=== PATIENT | female | born 1995 | race Caucasian/White ===

== ENCOUNTER 2019-12-23 19:25 | Emergency (ER) | payer MEDICAID ==
[~2019-12-23] VITALS: Ht 170.2 cm; Wt 49.9 kg
[2019-12-23 20:00] VITALS: BP 113/83
--- NOTE | 2019-12-23 20:00 | NUR ---
ED Nurse Note: pt ambulated into ed from home OC sz at home, duration unknown, precipitated by ETOH consumption - approx 2 12pks of [place], s/p witnessed by mother. Pt stated she is not sure what happened but is aware that she bite her tongue on the right side (no bleeding or bruising noted) and s/p hit head on floor. Pt reports headache and generalized body pain 8/10. UA obtained and sent to lab. Pt aao x 4, ambulatory. Awaiting ERMD at bedside Addendum: 12/23/19 at 2030 by [email or web address] ED Nurse Note: pt ambulated into ed from home OC sz at home, duration unknown, precipitated by ETOH consumption - approx 2 12pks of [place], s/p witnessed by mother. Pt stated she is not sure what happened but is aware that she bite her tongue on the right side (no bleeding or bruising noted) and s/p hit head on floor. Pt reports headache and generalized body pain 8/10. UA obtained and sent to lab. Pt aao x 4, ambulatory. Awaiting ERMD at bedside. Pt placed on monitor, side rails padded, bed in lowest position.
--- NOTE | 2019-12-23 20:07 | NUR ---
ED Nurse Note: ERMD at bedside. Labs drawn and sent. BS check 155, ERMD aware.
--- NOTE | 2019-12-23 20:12 | NUR ---
ED Nurse Note: All medications adminsitered, pt tolerated well no ss of distress noted.
[2019-12-23] MEDS ORDERED: LORazepam Inj 2mg/ml 1ml IV ONE (20:15)
--- NOTE | 2019-12-23 20:22 | Emergency Room Report ---
History of Present Illness General Chief Complaint: Seizure Source: Patient Present Illness HPI Disclaimer: Please note that this report is being documented using [employer] technology. This can lead to erroneous entry secondary to incorrect interpretation by the dictating instrument. HPI: 24-year-old female no reported past medical history presented after possible seizure. Patient denies history of seizures. She states she has been binge drinking for the past week drinking approximately 12-24 beverages per day. Last drink was last night. Apparently at home patient was feeling shaky, and had a witnessed seizure per mother. Patient complains of mild headache at this time. No nausea no vomiting no fevers. Patient denies history of alcohol related seizures in the past. Currently not on any medications. Pain is 8 out of 10. PMH: Patient denies any past medical history PSH: Reviewed Social Hx: Drinks daily denies smoking or illicit drug use Allergies: Coded Allergies: No Known Allergies (Unverified , 12/23/19) COVID-19 Screening Contact w/high risk pt: No Recent Travel to affected area: No Experienced COVID-19 symptoms?: No Patient History Last Menstrual Period: 11-23-2019 Now: No Nursing Documentation-PMH Past Medical History: No Stated History Review of Systems All Other Systems: negative except mentioned in HPI Physical Exam Vital Signs Date Time Temp Pulse Resp B/P (MAP) Pulse Ox O2 Delivery O2 Flow Rate FiO2 12/23/19 19:50 98.4 96 15 112/67 (82) 97 Room Air Sp02 EP Interpretation: reviewed, normal General Appearance: well appearing, no apparent distress Head: normocephalic, atraumatic Eyes: bilateral eye PERRL, bilateral eye EOMI ENT: hearing grossly normal, moist mucus membranes Neck: full range of motion, supple Respiratory: lungs clear, normal breath sounds, no rhonchi, no respiratory distress, no retraction, no wheezing Cardiovascular #1: normal peripheral pulses, regular rate, rhythm, no murmur Gastrointestinal: non tender, soft, non-distended, no guarding Neurologic: alert, trust administrator III-XII nml as tested, oriented x3, normal gait, no focal defects Skin: normal color, warm/dry Medical Decision Making Diagnostic Impression: Primary Impression: Alcohol withdrawal ER Course MDM: 24-year-old female presented after reported seizure. On arrival patient alert oriented ambulatory without focal deficit. She denies history of seizure. Clinical course-patient placed on a gurney. Glucose normal. Patient given IV fluids and [address] scan ordered. CT scan showed no acute intracranial pathology. Laboratory studies showed no leukocytosis. Urinalysis consistent with UTI. IV antibiotics given. On reassessment patient not tachycardic no signs of delirium tremens no recurrent seizure activity. Laboratory Tests Test 12/23/19 20:01 White Blood Count 8.3 K/UL (4.8-10.8) Red Blood Count 4.01 M/UL (4.20-5.40) L Hemoglobin 12.9 G/DL (12.0-16.0) Hematocrit 41.2 % (37.0-47.0) Mean Corpuscular Volume 103 FL (80-99) H Mean Corpuscular Hemoglobin 32.3 PG (27.0-31.0) H Mean Corpuscular Hemoglobin Concent 31.4 G/DL (32.0-36.0) L Red Cell Distribution Width 14.4 % (11.6-14.8) Platelet Count 454 K/UL (150-450) H Mean Platelet Volume 5.0 FL (6.5-10.1) L Neutrophils (%) (Auto) 80.9 % (45.0-75.0) H Lymphocytes (%) (Auto) 9.7 % (20.0-45.0) L Monocytes (%) (Auto) 7.7 % (1.0-10.0) Eosinophils (%) (Auto) 0.1 % (0.0-3.0) Basophils (%) (Auto) 1.7 % (0.0-2.0) Urine Color Pale yellow Urine Appearance Clear Urine pH 6 (4.5-8.0) Urine Specific [place] 1.020 (1.005-1.035) Urine Protein 2+ (NEGATIVE) H Urine Glucose (UA) Negative (NEGATIVE) Urine Ketones 2+ (NEGATIVE) H Urine Blood 2+ (NEGATIVE) H Urine Nitrite Positive (NEGATIVE) H Urine Bilirubin Negative (NEGATIVE) Urine Urobilinogen Normal MG/DL (0.0-1.0) Urine Leukocyte Esterase 1+ (NEGATIVE) H Urine RBC 2-4 /HPF (0 - 2) H Urine WBC 5-10 /HPF (0 - 2) H Urine Squamous Epithelial Cells Few /LPF (NONE/OCC) Urine Bacteria Moderate /HPF (NONE) H Urine HCG, Qualitative Negative (NEGATIVE) Sodium Level 138 MMOL/L (136-145) Potassium Level 4.1 MMOL/L (3.5-5.1) Chloride Level 98 MMOL/L (98-107) Carbon Dioxide Level 26 MMOL/L (21-32) Anion Gap 14 mmol/L (5-15) Blood Urea Nitrogen 9 mg/dL (7-18) Creatinine 0.9 MG/DL (0.55-1.30) Estimated Glomerular Filtration Rate > 60 mL/min (>60) Glucose Level 161 MG/DL (74-106) H Calcium Level 9.5 MG/DL (8.5-10.1) Total Bilirubin 0.3 MG/DL (0.2-1.0) Aspartate Amino Transferase (AST) 96 U/L (15-37) H Alanine Aminotransferase (ALT) 119 U/L (12-78) H Alkaline Phosphatase 86 U/L (46-116) Total Protein 8.9 G/DL (6.4-8.2) H Albumin 4.5 G/DL (3.4-5.0) Globulin 4.4 g/dL Albumin/Globulin Ratio 1.0 (1.0-2.7) Urine Opiates Screen Negative (NEGATIVE) Urine Barbiturates Screen Negative (NEGATIVE) Phencyclidine (PCP) Screen Negative (NEGATIVE) Urine Amphetamines Screen Negative (NEGATIVE) Urine Benzodiazepines Screen Positive (NEGATIVE) H Urine Cocaine Screen Negative (NEGATIVE) Urine Marijuana (THC) Screen Negative (NEGATIVE) On reevaluation: Patient no signs of delirium tremens no tremor no altered mental status no recurrent seizure activity with stable vital signs. Plan-after IV fluids antibiotics and 1 mg of Ativan patient stable for discharge. We will plan to discharge with Librium as needed every 8 hours. Also will discharge with oral antibiotic. Patient instructed to avoid drinking. Stable for discharge with return precautions. She was agreeable with the plan. Last Vital Signs Date Time Temp Pulse Resp B/P (MAP) Pulse Ox O2 Delivery O2 Flow Rate FiO2 12/23/19 20:00 86 15 Room Air 12/23/19 20:00 98.4 113/83 97 Status: improved Disposition: HOME, SELF-CARE Condition: Stable Scripts Cephalexin* (KEFLEX*) 500 Mg Capsule 500 MG ORAL EVERY 8 HOURS, #21 CAP Prov: Juan Aparicio M.D. 12/23/19 Chlordiazepoxide (Chlordiazepoxide HCl) 25 Mg Capsule 25 MG ORAL THREE TIMES A DAY PRN for Withdrawal symptoms (tremor), #6 CAP 0 Refills Prov: Juan Aparicio M.D. 12/23/19 Juan Aparicio M.D. December 23, 2019 20:22
--- NOTE | 2019-12-23 20:37 | NUR ---
ED Nurse Note: CT at bedside. Pt taken to CT in stable condition, no ss of distress noted. VSS.
[2019-12-23 20:47] LABS: ANION GAP 14 mmol/L (5-15); BLOOD UREA NITROGEN 9 mg/dL (7-18); CALCIUM 9.5 MG/DL (8.5-10.1); CARBON DIOXIDE 26 MMOL/L (21-32); CHLORIDE 98 MMOL/L (98-107); CREATININE 0.9 MG/DL (0.55-1.30); POTASSIUM 4.1 MMOL/L (3.5-5.1); SODIUM 138 MMOL/L (136-145)
[2019-12-23 20:50] LABS: BASOPHILS % (AUTO) 1.7 % (0.0-2.0); EOSINOPHILS % (AUTO) 0.1 % (0.0-3.0); HEMATOCRIT 41.2 % (37.0-47.0); HEMOGLOBIN 12.9 G/DL (12.0-16.0); LYMPHOCYTES % (AUTO) 9.7 % (20.0-45.0); MEAN CORPUSCULAR VOLUME 103 FL (80-99); MONOCYTES % (AUTO) 7.7 % (1.0-10.0); NEUTROPHILS % (AUTO) 80.9 % (45.0-75.0); PLATELET COUNT 454 K/UL (150-450); RED BLOOD COUNT 4.01 M/UL (4.20-5.40); RED CELL DISTRIBUTION WIDTH 14.4 % (11.6-14.8); WHITE BLOOD COUNT 8.3 K/UL (4.8-10.8)
[2019-12-23 20:52] LABS: ALANINE AMINOTRANSFERASE 119 U/L (12-78); ALBUMIN 4.5 G/DL (3.4-5.0); ALKALINE PHOSPHATASE 86 U/L (46-116); ASPARTATE AMINO TRANSFERASE 96 U/L (15-37); BILIRUBIN,TOTAL 0.3 MG/DL (0.2-1.0)
--- NOTE | 2019-12-23 20:53 | NUR ---
ED Nurse Note: Pt returned from CT in stable condition, no ss of distress noted.
[2019-12-23 21:16] LABS: APPEARANCE,URINE CLEAR; BILIRUBIN, URINE NEGATIVE (NEGATIVE); COLOR,URINE PALE YELLOW; GLUCOSE, URINE (UA) NEGATIVE (NEGATIVE); KETONES,URINE 2+ (NEGATIVE); LEUKOCYTE ESTERASE ,URINE 1+ (NEGATIVE); NITRITE,URINE POSITIVE (NEGATIVE); PH,URINE 6 (4.5-8.0); PROTEIN,URINE 2+ (NEGATIVE); UROBILINOGEN,URINE NORMAL MG/DL (0.0-1.0)
--- NOTE | 2019-12-23 21:18 | Diagnostic Imaging Report ---
EXAM: CT Head Without Intravenous Contrast CLINICAL HISTORY: SZ TECHNIQUE: Axial computed tomography images of the head/brain without intravenous contrast. CTDI is 53.40 mGy and DLP is 992.1 mGy-cm. One or more of the following dose reduction techniques were used: automated exposure control, adjustment of the mA and/or kV according to patient size, use of iterative reconstruction technique. COMPARISON: None FINDINGS: Brain: Unremarkable. No hemorrhage. No significant white matter disease. No edema. Ventricles: Unremarkable. No ventriculomegaly. Bones/joints: Unremarkable. No acute fracture. Soft tissues: Unremarkable. Sinuses: Unremarkable as visualized. No acute sinusitis. Mastoid air cells: Unremarkable as visualized. No mastoid effusion. IMPRESSION: No acute intracranial pathology.
--- NOTE | 2019-12-23 21:38 | NUR ---
ED Nurse Note: ERMD at bedside
[2019-12-23] MEDS ORDERED: CEPHALEXIN500 MG ORAL (21:43)
[2019-12-23] MEDS ORDERED: LIBRIUM25 MG ORAL (21:43)
[2019-12-23] MEDS ORDERED: cefTRIAXone 1 GM in NS 55 ML IVPB ONE (21:45)
--- NOTE | 2019-12-23 21:45 | NUR ---
ED Nurse Note: all medications administered, pt tolerated well. IV medication running. PT requested food, food and juice provided. Will continue to monitor.
[2019-12-23 22:00] VITALS: BP 110/80
[2019-12-23 22:14] VITALS: BP 110/80
--- NOTE | 2019-12-23 22:14 | NUR ---
ER DISCHARGE NOTE: Patient is cleared to be discharged home per ERMD, pt is aox4, 99% on room air, with stable vital signs. pt was given dc and prescription instructions, pt was able to verbalize understanding, pt id band and iv site removed without complications. pt is able to ambulate with steady gait. pt took all belongings.
== END 2019-12-23 22:14 | disposition home or self-care (01) ==
LOC: EMR 21:49
DX: F10.129 Alcohol abuse with intoxication, unspecified (principal)
CPT/HCPCS: 36415; 70450; 80053; 80307; 81003; 81025; 85025; 87086; 87181; 96361; 96365; 96375; J0696; J7030; Z7502; 99284

== ENCOUNTER 2020-01-18 21:19 | Emergency (ER) | payer MEDICAID ==
[~2020-01-18] VITALS: Ht 170.2 cm; Wt 49.9 kg
[~2020-01-18 21:19] MED LIST: CEPHALEXIN500 MG ORAL; LIBRIUM25 MG ORAL
--- NOTE | 2020-01-18 21:37 | NUR ---
ED Nurse Note: pt presents to ED c/o alcohol withdrawal, states her last drink was sometime earlier today, is now experiencing tremors. pt reports vomiting earlier today, has not eaten food since yesterday. pt states she "doesn't know" whether or not she is currently intoxicated. reports drinking every day for the past week.
[2020-01-18 21:38] VITALS: BP 125/90
--- NOTE | 2020-01-18 22:03 | Emergency Room Report ---
History of Present Illness General Chief Complaint: Alcohol Intoxication Source: Patient Present Illness HPI This a 24-year-old female with history of alcohol abuse. She presents with chief complaint of alcohol withdrawal. She has been drinking heavily in the last week. Last drink was this morning. Now she is having symptoms of withdrawals. She says she felt shaky and jittery. No fever chills but felt nauseous. No diarrhea. Similar symptom in the past. Never been in rehab before. Denies any suicidal thoughts or homicidal thought. Allergies: Coded Allergies: No Known Allergies (Unverified , 12/23/19) COVID-19 Screening Contact w/high risk pt: No Recent Travel to affected area: No Experienced COVID-19 symptoms?: No COVID-19 Testing performed OPTICAL FABRICATOR: No Patient History Past Medical History: see triage record, old chart reviewed Past Surgical History: none Pertinent Family History: none Social History: Reports: alcohol use Now: No - patient on IUD Immunizations: other Reviewed Nursing Documentation: PMH: Agreed; PSxH: Agreed Nursing Documentation-PMH Past Medical History: No Stated History Review of Systems Eye: Denies: eye pain, blurred vision ENT: Denies: ear pain, nose congestion, throat swelling Respiratory: Denies: cough, shortness of breath Cardiovascular: Denies: chest pain, palpitations Gastrointestinal: Denies: abdominal pain, diarrhea, nausea, vomiting Musculoskeletal: Denies: back pain, joint pain Skin: Denies: rash Neurological: Reports: tremors; Denies: headache, numbness Endocrine: Denies: increased thirst, increased urine Hematologic/Lymphatic: Denies: easy bruising All Other Systems: negative except mentioned in HPI Physical Exam Vital Signs Date Time Temp Pulse Resp B/P (MAP) Pulse Ox O2 Delivery O2 Flow Rate FiO2 01/18/20 21:22 99.0 116 22 125/90 (102) 96 Room Air Vitals with tachycardia Sp02 EP Interpretation: reviewed, normal General Appearance: well appearing, no apparent distress, alert Head: normocephalic, atraumatic Eyes: bilateral eye PERRL, bilateral eye EOMI ENT: hearing grossly normal, normal pharynx Neck: full range of motion, supple, no meningismus Respiratory: chest non-tender, lungs clear, normal breath sounds Cardiovascular #1: regular rate, rhythm, no murmur Gastrointestinal: normal bowel sounds, non tender, no mass, no organomegaly, no bruit, non-distended Musculoskeletal: back normal, normal range of motion, gait/station normal Neurologic: other - Patient with tremors Psychiatric: mood/affect normal Medical Decision Making Diagnostic Impression: Primary Impression: Alcohol withdrawal Qualified Codes: F10.230 - Alcohol dependence with withdrawal, uncomplicated ER Course Patient presents with symptom of alcohol withdrawal. She has mild tremors. She is not suicidal or suicidal. Better after dose of Ativan. I also gave her oral Librium here. Will discharge home. Last Vital Signs Date Time Temp Pulse Resp B/P (MAP) Pulse Ox O2 Delivery O2 Flow Rate FiO2 01/18/20 21:38 116 22 Room Air 01/18/20 21:38 125/90 96 01/18/20 21:22 99.0 Status: improved Disposition: HOME, SELF-CARE Condition: Stable Scripts Chlordiazepoxide (Chlordiazepoxide HCl) 25 Mg Capsule 25 MG ORAL THREE TIMES A DAY, #21 CAP 0 Refills Prov: Rio Mehta MD 01/18/20 Patient Instructions: Alcohol Withdrawal Additional Instructions: Abstain from alcohol. Follow-up with rehab within a week. Return if symptoms worsen. Rio Mehta MD January 18, 2020 22:03
[2020-01-18] MEDS ORDERED: LORazepam Inj 2mg/ml 1ml IM ONE (22:15)
[2020-01-18] MEDS ORDERED: chlordiazePOXIDE 25mg Cap ORAL ONE (22:15)
--- NOTE | 2020-01-18 22:15 | NUR ---
ED Nurse Note: Pts significant other is asking if he can take pt home. ERMD aware.
[2020-01-18] MEDS ORDERED: LIBRIUM25 MG ORAL (22:19)
[2020-01-18 22:25] VITALS: BP 122/90
--- NOTE | 2020-01-18 22:25 | NUR ---
ER DISCHARGE NOTE: Patient is cleared to be discharged per ERMD, pt is aox4, on room air, with stable vital signs. pt was given dc and prescription instructions, pt was able to verbalize understanding, pt id band removed. pt is able to ambulate with steady gait. pt took all belongings and assisted by significant other.
== END 2020-01-18 22:25 | disposition home or self-care (01) ==
LOC: EMR 22:00
DX: F10.230 Alcohol dependence with withdrawal, uncomplicated (principal)
CPT/HCPCS: 96372; Z7502; 99283

== ENCOUNTER 2020-02-17 22:06 | Emergency (ER) | payer SELFPAY ==
[~2020-02-17] VITALS: Ht 170.2 cm; Wt 49.9 kg
--- NOTE | 2020-02-17 22:15 | NUR ---
ED Nurse Note: pt walked into ED c/o alcohol withdrawal, pt states that she last drank earlier today, states she has been drinking for a few days. pt reports vomiting yesterday. VSS, nad, aaox4, ambulatory.
[2020-02-17 22:23] VITALS: BP 132/81
[2020-02-17] MEDS ORDERED: LIBRIUM25 MG ORAL (22:30)
[2020-02-17] MEDS ORDERED: LORazepam Inj 2mg/ml 1ml IV ONE (22:30)
[2020-02-17] MEDS ORDERED: chlordiazePOXIDE 25mg Cap ORAL ONE (22:30)
--- NOTE | 2020-02-17 22:30 | Emergency Room Report ---
History of Present Illness General Chief Complaint: Vomiting Source: Patient, Medical Record Present Illness HPI This a 24-year-old female with history of alcohol abuse. She presents with chief complaint of alcohol withdrawal. She has been here few times for this already. I saw her last month for the same thing. She said that after she left her last month she was rehabbing at home with Librium. Her mom is a nurse and helped out with it. She was doing well until last week when she started drinking again. She said that her last drink was this afternoon. Now she is feeling anxious and shaky. [place] nauseous but no vomiting. No fever chills. No suicidal thoughts homicidal thought. Nothing made it better. Nothing made it worse. Allergies: Coded Allergies: No Known Allergies (Unverified , 12/23/19) COVID-19 Screening Contact w/high risk pt: No Recent Travel to affected area: No Experienced COVID-19 symptoms?: No COVID-19 Testing performed LAB ANALYST: No Patient History Past Medical History: see triage record, old chart reviewed Past Surgical History: none Pertinent Family History: none Social History: Reports: alcohol use Last Menstrual Period: IUD Now: No Immunizations: other Reviewed Nursing Documentation: PMH: Agreed; PSxH: Agreed Review of Systems Eye: Denies: eye pain, blurred vision ENT: Denies: ear pain, nose congestion, throat swelling Respiratory: Denies: cough, shortness of breath Cardiovascular: Denies: chest pain, palpitations Gastrointestinal: Denies: abdominal pain, diarrhea, nausea, vomiting Musculoskeletal: Denies: back pain, joint pain Skin: Denies: rash Neurological: Reports: tremors; Denies: headache, numbness Endocrine: Denies: increased thirst, increased urine Hematologic/Lymphatic: Denies: easy bruising All Other Systems: negative except mentioned in HPI Physical Exam Vital Signs Date Time Temp Pulse Resp B/P (MAP) Pulse Ox O2 Delivery O2 Flow Rate FiO2 02/17/20 22:11 98.8 118 18 131/88 (102) 94 Room Air 02/17/20 22:23 99 Vitals with tachycardia Sp02 EP Interpretation: reviewed, normal General Appearance: well appearing, no apparent distress, alert Head: normocephalic, atraumatic Eyes: bilateral eye PERRL, bilateral eye EOMI ENT: hearing grossly normal, normal pharynx Neck: full range of motion, supple, no meningismus Respiratory: chest non-tender, lungs clear, normal breath sounds Cardiovascular #1: regular rate, rhythm, no murmur Gastrointestinal: normal bowel sounds, non tender, no mass, no organomegaly, no bruit, non-distended Musculoskeletal: back normal, normal range of motion, gait/station normal Neurologic: other - Tremors Psychiatric: anxious Medical Decision Making Diagnostic Impression: Primary Impression: Alcohol withdrawal Qualified Codes: F10.230 - Alcohol dependence with withdrawal, uncomplicated ER Course Patient presents with alcohol withdrawal. No complication. Not suicidal thought homicidal thought. Better with Ativan. No criteria for 5150. Last Vital Signs Date Time Temp Pulse Resp B/P (MAP) Pulse Ox O2 Delivery O2 Flow Rate FiO2 02/17/20 22:23 120 18 Room Air 99 02/17/20 22:23 98.8 132/81 99 Status: improved Disposition: HOME, SELF-CARE Condition: Stable Scripts Chlordiazepoxide (Chlordiazepoxide HCl) 25 Mg Capsule 25 MG ORAL THREE TIMES A DAY, #21 CAP 0 Refills Prov: Rio Mehta MD 02/17/20 Additional Instructions: Abstain from alcohol. Follow-up with your doctor in 7 days. Go to rehab. Return if worse. Rio Mehta MD Feb 17, 2020 22:30
[2020-02-17 23:00] VITALS: BP 122/75
[2020-02-17 23:25] VITALS: BP 122/75
--- NOTE | 2020-02-17 23:25 | NUR ---
ER DISCHARGE NOTE: Patient is cleared to be discharged per ERMD, pt is aox4, on room air, with stable vital signs. pt was given dc and prescription instructions, pt was able to verbalize understanding, pt id band and iv site removed without complications. pt is able to ambulate with steady gait. pt took all belongings.
== END 2020-02-17 23:25 | disposition home or self-care (01) ==
LOC: EMR 23:14
DX: F10.230 Alcohol dependence with withdrawal, uncomplicated (principal)
CPT/HCPCS: 96361; 96374; 99284